=== PATIENT | male | born 1950 | race Caucasian/White ===

== ENCOUNTER 2016-08-30 14:26 | Emergency (ER) | payer MEDICAID ==
[2016-08-30 14:33] VITALS: BP 110/62; PULSE 60; RESP 16; TEMP 97.3; O2SAT 97
--- NOTE | 2016-08-30 14:39 | EDPHY ---
HPI/HX/ROS/PE/MDM Narrative: CHIEF COMPLAINT: Forehead laceration HPI: The patient is a 65 y/o male complaining of a forehead laceration secondary to a pot falling on his head. He was shopping at [employer] and grabbed a pot off a shelf when 3 more fell on his forehead. He did not lose consciousness and denies weakness, paresthesias, or other complaints. His pain is mild in severity and he has no active bleeding. He does not use anticoagulants. REVIEW OF SYSTEMS: Aside from elements discussed in the HPI, a comprehensive 10-point review of systems was reviewed and is negative. PMH: HIV+, tetanus vaccination within 10 years SOCIAL HISTORY: Lives in [place] PHYSICAL EXAM: General:Patient is alert, in no acute distress. Head: 4cm linear laceration to central forehead. ENT:Eyes are normal to inspection. ENT inspection normal. Neck: Normal inspection. Full range of motion. Neuro: Oriented x3. Normal motor function. Normal sensory function. ED Course: Procedure: Laceration repair. Verbal consent was obtained from the patient. The linear 4cm laceration on the forehead was anesthetized using lidocaine with epinephrine. The wound was cleaned with standard ED protocol, draped and explored to its base with a gloved finger. There were no deep structures involved. The wound was repaired in single layer technique with 6 sutures 6-0 Prolene. The wound repair was simple. The procedure was performed by myself, Dr. Parra. MDM: Uncomplicated forehead laceration. No signs of skull fracture or intracranial bleed. General Time Seen by Provider: 08/30/16 14:35 Initial Vital Signs: Initial Vital Signs Temperature (C) 36.3 C 08/30/16 14:30 Heart Rate 60 08/30/16 14:30 Respiratory Rate 16 08/30/16 14:30 Blood Pressure 110/62 08/30/16 14:30 O2 Sat (%) 97 08/30/16 14:30 O2 Delivery Mode Room Air Allergies/Adverse Reactions: No Known Allergies Allergy (Unverified 08/30/16 14:30) Home Medications: Medication Instructions Recorded Descovy 200-25 mg Tablet 08/30/16 Tivicay 08/30/16 Valacyclovir 08/30/16 Departure - Departure Disposition: Home, Routine, Self-Care Clinical Impression: Forehead laceration Qualifiers: Encounter type: initial encounter Qualified Code(s): S01.81XA - Laceration without foreign body of other part of head, initial encounter Condition: Good Instructions: Care For Your Stitches (ED), Facial Laceration (ED) Additional Instructions: 1. Okay to shower and bathe normally, just be gentle around sutures. 2. You can apply Bacitracin over the laceration while it is healing. 3. I recommend using sunscreen or keeping the laceration covered entirely for the next several months to minimize scarring. 4. Return in 7 days for suture removal. 5. Watch for signs of infection including severe pain, dramatic increase in redness or swelling, pus draining from the wound, fever, or other worsening of condition. Referrals: Rodrick Felix MD [Primary Care Provider] - As per Instructions Report Scribed for: Gonzales Parra Report Scribed by: Sheridan Ca Date of Report: 08/30/16 Time of Report: 15:13 Physician Review and Approval Statement: Portions of this note were transcribed by an ED scribe. I personally performed the history, physical exam, and medical decision making; and confirm the accuracy of the information in the transcribed note.
== END 2016-08-30 15:25 | disposition home or self-care (01) ==
PROC: 0HQ1XZZ Repair Face Skin, External Approach (ICD-10-PCS; principal; 2016-08-30)
DX: S01.81XA Laceration without foreign body of other part of head, initial encounter (principal); W20.8XXA Other cause of strike by thrown, projected or falling object, initial encounter; Y92.009 Unspecified place in unspecified non-institutional (private) residence as the place of occurrence of the external cause

== ENCOUNTER → 2018-10-08 | Outpatient (CLI) | payer OTHER | LOC: FIMAGING 10:10 | PROVIDERS: ATTEND Internal Medicine Infectious Disease | DX: Z13.820 Encounter for screening for osteoporosis (principal); M85.89 Other specified disorders of bone density and structure, multiple sites; B20 Human immunodeficiency virus [HIV] disease; Z79.899 Other long term (current) drug therapy ==